=== PATIENT | male | born 1995 | race Caucasian/White ===

== ENCOUNTER 2025-05-12 18:16 | Emergency (ER) | payer OTHER ==
[2025-05-12] MEDS ORDERED: Sertraline 100 MG TAB PO SCH (19:15)
== END 2025-05-12 19:00 | disposition home or self-care (01) ==
LOC: EDBD 18:16 → BURERS 18:16
DX: F48.9 Nonpsychotic mental disorder, unspecified (principal); F17.220 Nicotine dependence, chewing tobacco, uncomplicated
CPT/HCPCS: 99283